=== PATIENT | female | born 1955 | race Caucasian/White ===

== ENCOUNTER 2017-05-12 20:58 | Emergency (ER) | payer SELFPAY ==
[~2017-05-12] VITALS: Ht 154.9 cm; Wt 62.1 kg
--- NOTE | 2017-05-12 21:03 | ED.ADGEN ---
Past History Past Medical History: No Pertinent History, COPD, Other Past Surgical History: Other Smoking: Cigarettes Alcohol Use: None Drug Use: None Adult General Chief Complaint Chief Complaint " I coughing up some white stuff . and then . It was green.. I feel like I got the flu or something.. I ve been sick since sunday.. Fever... coughing... I ve cut back on my smoking....." my nose runs constantly. " HPI HPI Patient is a 62 year old female who presents with above hx and complaints of fever, chills and coughing. Pt. denies any travel or specific ill contacts. Pt. does smoke and has hx of chronic bronchitis. Pt. denies any immunosuppression. Pt. has hx or episodes of bronchitis in past and Hx. of HTN. Pt. has hx of allergies usually seasonal or with changes in weather. Pt. complaints of nasal congestion and drainage. Mild pharyngeal soreness. Review of Systems Review of Systems Constitutional:Subjecteive hx of fever or chills [] Eyes: Denies change in visual acuity, redness, or eye pain [] HENT: Hx of nasal congestion and sore throat [] Respiratory: occasional cough and wheezing. Cardiovascular: No additional information not addressed in HPI [] GI: Denies abdominal pain, nausea, vomiting, bloody stools or diarrhea [] : Denies dysuria or hematuria [] Musculoskeletal: Denies back pain or joint pain [] Integument: Denies rash or skin lesions [] Neurologic: Denies headache, focal weakness or sensory changes [] Endocrine: Denies polyuria or polydipsia [] All other systems were reviewed and found to be within normal limits, except as documented in this note. Family History Family History Noncontributory Current Medications Current Medications See Nursing for home. Allergies Allergies Allergies Coded Allergies Type Severity Reaction Last Updated Verified No Known Drug Allergies 05/13/17 No Physical Exam Physical Exam Constitutional: mild distress, non-toxic appearance. [] HENT: Normocephalic, atraumatic, bilateral external ears normal, oropharynx moist,mild injection of pharynx., no oral exudates, nose rhinorrhea. Eyes: PERRLA, EOMI, conjunctiva normal, no discharge. [] Neck: Normal range of motion, no tenderness, supple, no stridor. [] Cardiovascular:Heart rate regular rhythm, no murmur [] Lungs & Thorax: Bilateral breath sounds equal at apex with scattered wheezes on auscultation [] Abdomen: Bowel sounds normal, soft, no tenderness, no masses, no pulsatile masses. [] Skin: Warm, dry, no erythema, no rash. [] Back: No tenderness, no CVA tenderness. [] Extremities: No tenderness, no cyanosis, no clubbing, ROM intact, no edema. [] No cording. Neurologic: Alert and oriented X 3, normal motor function, normal sensory function, no focal deficits noted. [] Psychologic: Affect normal, judgement normal, mood normal. [] Current Patient Data Lab Results Laboratory Tests Test 05/12/17 21:16 Influenza Type A (Rapid) Negative (NEGATIVE) Influenza Type B (Rapid) Negative (NEGATIVE) Group A Streptococcus Rapid Negative (NEGATIVE) EKG EKG [] Radiology/Procedures Radiology/Procedures [] Course & Med Decision Making Course & Med Decision Making Pertinent Labs and Imaging studies reviewed. (See chart for details). Pt. to take tylenol and ibuprofen of discomfort or fever. Push fluids. Vit. C drinks. Benadryl for congestion and nasal drainage. STOP smoking. . Follow up with primary. Return to night even if any concerns. [] Final Impression Final Impression 1. Viral Syndrome 2. Tobacco Abuse 3. Bronchitis[] Problems: Dragon Disclaimer Dragon Disclaimer This electronic medical record was generated, in whole or in part, using a voice recognition dictation system. PENNY STACY MD May 12, 2017 21:03
[2017-05-12 22:05] LABS: INFLUENZA A PATIENT NEGATIVE (NEGATIVE); INFLUENZA B PATIENT NEGATIVE (NEGATIVE)
[2017-05-12 22:50] VITALS: BP 132/70
[2017-05-13] MEDS ORDERED: FLUT1DIS3 IH (02:45)
[2017-05-14] MEDS ORDERED: IV NORMAL SALINE 1,000ML 1,000 ML IV ONE (20:45)
[2017-05-14 21:18] LABS: BASO % 0 % (0-3); EOS % 0 % (0-3); HEMATOCRIT 40.1 % (36.0-47.0); HEMOGLOBIN 13.9 g/dL (12.0-15.5); LYMPH # 2.9 x10^3/uL (1.0-4.8); LYMPH % 47 % (24-48); MEAN CORPUSCULAR HEMOGLOBIN 30 pg (25-35); MEAN CORPUSCULAR HGB CONC 35 g/dL (31-37); MEAN CORPUSCULAR VOLUME 85 fL (79-100); MONO # 0.5 x10^3/uL (0.0-1.1); MONO % 8 % (0-9); NEUT # 2.8 x10^3uL (1.8-7.7); NEUT % 45 % (31-73); PLATELET COUNT 196 x10^3/uL (140-400); RED BLOOD COUNT 4.71 x10^6/uL (3.50-5.40); RED CELL DISTRIBUTION WIDTH 13.2 % (11.5-14.5); WHITE BLOOD COUNT 6.2 x10^3/uL (4.0-11.0)
[2017-05-14 21:29] LABS: ALBUMIN 3.3 g/dL (3.4-5.0); ALBUMIN/GLOBULIN RATIO 0.9 (1.0-1.7); CALCIUM 9.3 mg/dL (8.5-10.1); CREATININE 1.1 mg/dL (0.6-1.0); GFR 50.5; POTASSIUM 3.9 mmol/L (3.5-5.1); TOTAL BILIRUBIN 0.3 mg/dL (0.2-1.0); TOTAL PROTEIN 7.1 g/dL (6.4-8.2)
[2017-05-14 21:32] LABS: BACTERIA,URINE 0 /HPF (0-FEW); BILIRUBIN,URINE NEG (NEG); CLARITY,URINE CLEAR; COLOR,URINE YELLOW; GLUCOSE,URINE NEG (NEG); NITRITE,URINE NEG (NEG); SQUAMOUS EPITHELIAL CELL,UR MANY /LPF; UROBILINOGEN,URINE 0.2 mg/dL (0.2 mg/dL)
[2017-05-14 21:33] LABS: HYALINE CASTS, URINE OCC /HPF
== END 2017-05-12 22:55 | disposition home or self-care (01) ==
LOC: ER 20:58
DX: B34.9 Viral infection, unspecified (principal); J40 Bronchitis, not specified as acute or chronic; F17.210 Nicotine dependence, cigarettes, uncomplicated; J44.9 Chronic obstructive pulmonary disease, unspecified
CPT/HCPCS: 36415; 80053; 81001; 85025; 87070; 87804; 87880; 99284

== ENCOUNTER 2017-05-14 20:07 | Emergency (ER) | payer SELFPAY ==
[~2017-05-14] VITALS: Ht 154.9 cm; Wt 62.9 kg
[~2017-05-14 20:07] MED LIST: FLUT1DIS3 IH
[2017-05-14] MEDS ORDERED: KETOROLAC 15 MG/ML VIAL. IV ONE (21:15)
[2017-05-14] MEDS ORDERED: IV NORMAL SALINE 1,000ML 1,000 ML IV ONE (21:15)
[2017-05-14] MEDS ORDERED: PROMETH/CODEINE 6.25/10MG 5 ML SYRUP. PO ONE (22:15)
[2017-05-14 22:25] VITALS: BP 147/84
[2017-05-14] MEDS ORDERED: PROM5SYR2 PO (22:42)
--- NOTE | 2017-05-14 22:42 | PHYS DOC ---
Past History Past Medical History: COPD, Hypertension, Other Past Surgical History: Other Smoking: Cigarettes Alcohol Use: None Drug Use: None Adult General Chief Complaint Chief Complaint: Influenza HPI HPI Patient is a 62-year-old female who presents here today complaining of generalized fatigue, generalized malaise, nonproductive cough, nausea, generalized weakness for approximately 1 week now. Patient reports that she came to the ER on Sunday was diagnosed with a viral illness and was told that she might have the flu. Patient was discharged home with therapeutic medications and instructed to return the ER she's not getting any better. Patient presents today she has been feeling worse. Daughter reports her mother is been having decreased by mouth intake, tactile fevers, nausea, no dysuria frequency or urgency, positive nonproductive cough. Sore throat. Ear pain. Review of systems: Constitutional: Denies fever or chills Eyes: Denies change in visual acuity, redness, or eye pain HENT: Denies nasal congestion or sore throat Respiratory: Denies cough or shortness of breath All other systems were reviewed and found to be within normal limits, except as documented in this note. Physical exam: Constitutional: Well developed, well nourished, no acute distress, non-toxic appearance. HENT: Normocephalic, atraumatic, bilateral external ears normal, nose normal. Eyes: PERRLA, EOMI, conjunctiva normal, no discharge. Neck: Normal range of motion, no tenderness, supple, no stridor. Cardiovascular: Heart rate regular rhythm, Lungs & Thorax: Bilateral breath sounds clear to auscultation Abdomen: No abdominal distention. Skin: Warm, dry, no erythema, no rash. Back: Normal spinal curvature Extremities: No tenderness, no cyanosis, no clubbing, ROM intact, no edema. Neurologic: Alert and oriented X 3, normal motor function, normal sensory function, no focal deficits noted. Psychologic: Affect normal, judgement normal, mood normal. Patient's ER physical exam was most remarkable: Lungs are clear without any wheezing rales or rhonchi. TMs are clear. Oropharynx clear. Abdomen was benign. Abdomen soft nontender no rebound or guarding NABS. No Cleary sign, no tenderness to McBurney's point. Patient not present with any signs or symptoms of be consistent with an acute surgical abdomen. Chest x-ray as interpreted by ER physician reveals: Normal heart no infiltrates or effusions. Labs reviewed: Influenza a and B were negative. Strep screen negative. Labs drawn today: CBC, CMP within normal limits. Assessment and plan: 1. 62-year-old female who presents here today secondary to generalized malaise and likely viral illness. Patient's ER workup is been unremarkable. Patient reports generalized weakness, decreased sleep secondary to cough, diffuse malaise and myalgias. Patient's symptoms are consistent with a acute viral illness. Patient's currently afebrile and nontoxic appearing. Patient will be discharged home with some specks therapy including Tylenol as needed for her malaise as well as Phenergan with codeine to assist her to get some sleep at night with her cough. Patient be instructed to follow-up with her primary care physician within 2-3 days for reevaluation and to return to the ER. Discharged developing any shortness of breath or any other new symptoms that may be concerning. Current Medications Current Medications Current Medications Medications (Trade) Dose Ordered Sig/Charlee Start Time Stop Time Status Last Admin Dose Admin Ketorolac Tromethamine (Toradol) 15 mg 1X ONCE 05/14/17 21:15 05/14/17 21:16 DC 05/14/17 21:09 15 MG Promethazine HCl/ Codeine (Phenergan With Codeine) 10 ml 1X ONCE 05/14/17 22:15 05/14/17 22:16 DC 05/14/17 22:08 10 ML Sodium Chloride 1,000 ml @ 1,000 mls/hr 1X ONCE 05/14/17 21:15 05/14/17 22:14 DC 05/14/17 21:09 1,000 MLS/HR Allergies Allergies Allergies Coded Allergies Type Severity Reaction Last Updated Verified No Known Drug Allergies 05/13/17 No Current Patient Data Vital Signs Vital Signs Date Time Temp Pulse Resp B/P (MAP) Pulse Ox O2 Delivery O2 Flow Rate FiO2 05/14/17 20:07 98.4 72 18 98 Room Air EKG EKG [] Radiology/Procedures Radiology/Procedures [] Course & Med Decision Making Course & Med Decision Making Pertinent Labs and Imaging studies reviewed. (See chart for details) [] Dragon Disclaimer Dragon Disclaimer This electronic medical record was generated, in whole or in part, using a voice recognition dictation system. Departure Departure: Impression: Primary Impression: Viral illness Disposition: HOME, SELF-CARE Condition: IMPROVED Referrals: PCP,NO (PCP) Patient Instructions: Viral Syndrome Scripts Promethazine HCl/Codeine (Prometh-Codein 6.25-10 mg/5 ml) 5 Ml Syrup 10 ML PO HS Y for COUGH, #120 ML Prov: SUSANA ONEIL MD 05/14/17 SUSANA ONEIL MD May 14, 2017 22:42
--- NOTE | 2017-05-15 07:30 | RAD ---
Chest, 2 views, 05/14/2017: History: Cough, congestion, fatigue Comparison is made to a study from 12/10/2011. The heart size and pulmonary vascularity are normal. No pulmonary infiltrate is seen. There is no evidence of pleural fluid. Mild spurring is present in the spine. A surgical plate and screws is evident in the lower cervical region. IMPRESSION: No acute cardiopulmonary abnormality is detected.
== END 2017-05-14 22:48 | disposition home or self-care (01) ==
LOC: ER 20:07
DX: B34.9 Viral infection, unspecified (principal); J44.9 Chronic obstructive pulmonary disease, unspecified; I10 Essential (primary) hypertension; F17.210 Nicotine dependence, cigarettes, uncomplicated
CPT/HCPCS: 71046; 96361; 96374; 99284; J1885; J7030

== ENCOUNTER 2021-02-01 02:46 | Emergency (ER) | payer MEDICARE ==
[~2021-02-01] VITALS: Ht 154.9 cm; Wt 62.9 kg
[~2021-02-01 02:46] MED LIST changes: +PROM5SYR2 PO
--- NOTE | 2021-02-01 03:01 | PHYS DOC ---
Past History Past Medical History: COPD, Hypertension, Other Additional Past Medical Histor: denies Past Surgical History: Other Additional Past Surgical Histo: neck Smoking: Cigarettes Alcohol Use: None Drug Use: None General Adult EDM: Chief Complaint: SHORTNESS OF BREATH HPI: HPI: ". This been .... coming on ....for a while.. just worse.... tonight...." Patient is a 66 year old female who presents with obvious respiratory failure. Pt. reports increased dyspnea last couple days. Much more severe tonight. Earline ent has had past history of COPD exacerbations. Reportedly has never had a IN or CHF in the past. Patient does have oxygen at home which she uses for her COPD. Patient has had previous elevated glucose levels and hypertension. Patient has excess of [id number] smoking history patient normally follows with Dr. Schroeder. Pt. has had saturation in 80% by Paramedics, but supplement 100% NRBM - sat into 95%. Pt. promptly placed on BiPAP 18/5 with rapid relief of dyspnea and hypoxia. Patient has completed 1 COVID vaccination. No recent travel. No specific ill contacts. No history immunosuppression. Review of Systems: Review of Systems: Constitutional: Denies fever or chills Eyes: Denies change in visual acuity HENT: Denies nasal congestion or sore throat Respiratory: Complains of shortness of breath Cardiovascular: Denies chest pain or edema GI: Denies abdominal pain, nausea, vomiting, bloody stools or diarrhea : Denies dysuria Musculoskeletal: Denies back pain or joint pain Integument: Denies rash Neurologic: Denies headache, focal weakness or sensory changes Endocrine: Denies polyuria or polydipsia Lymphatic: Denies swollen glands Psychiatric: Denies depression or anxiety Family History: Family History: Noncontributory to presentation Current Medications: Current Meds: See nursing for home meds Allergies: Allergies: Allergies Coded Allergies Type Severity Reaction Last Updated Verified No Known Drug Allergies 02/01/21 No Physical Exam: PE: Constitutional:in acute distress, non-toxic appearance. [] HENT: Normocephalic, atraumatic, bilateral external ears normal, oropharynx moist, no oral exudates, nose normal. [] Eyes: PERRLA, EOMI, conjunctiva normal, no discharge. [] Neck: Normal range of motion, no tenderness, supple, no stridor. JVD in sitting position Cardiovascular: Tachycardia heart rate regular rhythm, no murmur [] bedside monitor shows sinus tach with a ventricular strain pattern Lungs & Thorax: Bilateral breath sounds equal apex with crackles and wheezing throughout auscultation [] Abdomen: Bowel sounds decreased, soft, no tenderness, no masses, no pulsatile masses. [] Skin: Warm, diaphoretic, no erythema, no rash. [] Back: No tenderness, no CVA tenderness. [] Extremities: No tenderness, no cyanosis, no clubbing, ROM intact, ankle edema. No cording appreciated. Arthritic changes Neurologic: Alert and oriented X 3, moves all extremities on request, does have distal sensory, no focal deficits noted. [] Psychologic: Affect anxious, judgement normal, mood normal. [] Current Patient Data: Vital Signs: Vital Signs Date Time Temp Pulse Resp B/P (MAP) Pulse Ox O2 Delivery O2 Flow Rate FiO2 02/01/21 02:50 113 40 147/84 (105) 98 NonRebreather Mask 15.0 EKG: EKG: My interpretation EKG shows a sinus rhythm at 98 bpm. Ventricular strain pattern abnormal EKG time of EKG is 0317 hrs. [] Radiology/Procedures: Radiology/Procedures: [][place] [address] IMAGING REPORT Signed PATIENT: ISAAC BRADFORD LACCOUNT: [id number] : 1955 LOCATION: ER AGE: 66 SEX: F EXAM STATUS: REG ER ORD. PHYSICIAN: PENNY STACY MD REASON: resp. failure PROCEDURE: PORTABLE CHEST 1V INDICATION: Reason: resp. failure / Spl. Instructions: / History: COMPARISON: April 2017 FINDINGS: Single view of chest obtained. Enlarged cardiomediastinal silhouette. Postoperative changes status post fusion at the lower cervical spine partially seen. Interstitial and alveolar opacities bilaterally moderate in severity there is also some disorganized pulmonary markings which could be from chronic lung disease. IMPRESSION: * Interstitial and alveolar opacities bilaterally which could be from edema or bilateral infiltrate. * Enlarged cardiomediastinal silhouette. * Coarsened lung markings. Could be from chronic lung disease. Electronically signed by: Carlene Dominguez MD (02/01/2021 4:51 AM) [id number] DICTATED AND SIGNED BY: CARLENE DOMINGUEZ MD DATE: 02/01/219 CC: NICOLAS SCHROEDER MD; PENNY STACY MD ~MTH0 0 Heart Score: C/O Chest Pain: No HEART Score for Chest Pain: HEART Score for Chest Pain Response (Comments) Value History Highly Suspicious [address] Depression 2 Age > 65 2 Risk Factors 1 or 2 Risk Factors 1 Troponin >3 x Normal Limit 2 Total 9 Risk Factors: Risk Factors: DM, Current or recent (<one month) smoker, HTN, HLP, family history of CAD, obesity. Risk Scores: Score 0 - 3: 2.5% MACE over next 6 weeks - Discharge Home Score 4 - 6: 20.3% MACE over next 6 weeks - Admit for Clinical Observation Score 7 - 10: 72.7% MACE over next 6 weeks - Early Invasive Strategies Course & Med Decision Making: Course & Med Decision Making Pertinent Labs and Imaging studies reviewed. (See chart for details) Discussed presentation, testing and tx. plan with and Dr. Gilbert. Plan hold in ED until AM shift for transfer to [facility]. Will start Azithromax, Solu-Medrol, Lovenox, aspirin, Nitropaste, Lasix, DuoNeb. We will continue BiPAP until she has some diuresis.. Critical Care= 90 min. Bipap titration, discussions with family and consultants. EKG sent to Dr. Acevedo [phone]. Endorsed to Dr. Ramirez at shift change pending transfer to [facility]. Impression: 1. Respiratory failure-hypoxia 2. CHF-BNP 2365 3. Non-Stemi IN - Trop 3247 4. Diabetes-glucose 260 5. History of COPD 6. Elevated Lactic Acid 3.5 7. Elevated D-dimer 0.96 [] Dragon Disclaimer: Dragon Disclaimer: This electronic medical record was generated, in whole or in part, using a voice recognition dictation system. Departure Departure: Referrals: PCP,NO (PCP) Tk Disclaimer This chart was dictated in whole or in part using Voice Recognition software in a busy, high-work load, and often noisy Emergency Department environment. It may contain unintended and wholly unrecognized errors or omissions. Dragon Disclaimer This chart was dictated in whole or in part using Voice Recognition software in a busy, high-work load, and often noisy Emergency Department environment. It may contain unintended and wholly unrecognized errors or omissions. PENNY STACY MD Feb 01, 2021 03:01
[2021-02-01 03:27] LABS: BASO # 0.1 x10^3/uL (0.0-0.2); BASO % 1 % (0-3); EOS # 0.3 x10^3/uL (0.0-0.7); EOS % 2 % (0-3); HEMOGLOBIN 12.5 g/dL (12.0-15.5); LYMPH # 6.8 x10^3/uL (1.0-4.8); LYMPH % 48 % (24-48); MEAN CORPUSCULAR HEMOGLOBIN 29 pg (25-35); MEAN CORPUSCULAR HGB CONC 33 g/dL (31-37); MEAN CORPUSCULAR VOLUME 87 fL (79-100); MONO % 7 % (0-9); NEUT # 6.1 x10^3uL (1.8-7.7); NEUT % 43 % (31-73); PLATELET COUNT 307 x10^3/uL (140-400); RED BLOOD COUNT 4.35 x10^6/uL (3.50-5.40); RED CELL DISTRIBUTION WIDTH 13.9 % (11.5-14.5); WHITE BLOOD COUNT 14.3 x10^3/uL (4.0-11.0)
[2021-02-01] MEDS ORDERED: IPRATRPIUM/ALBUTEROL 0.5/2.5MG 3 ML NEBU. NEB ONE (03:30)
[2021-02-01] MEDS ORDERED: ASPIRIN CHEWABLE 81 MG TABLET. PO ONE (03:30)
[2021-02-01 03:52] LABS: CALCIUM 7.9 mg/dL (8.5-10.1); GFR 55.6; POTASSIUM 4.5 mmol/L (3.5-5.1)
[2021-02-01 03:57] LABS: ALBUMIN 3.4 g/dL (3.4-5.0); DIRECT BILIRUBIN 0.1 mg/dL (0.0-0.2); MAGNESIUM 2.2 mg/dL (1.8-2.4); TOTAL BILIRUBIN 0.3 mg/dL (0.2-1.0); TOTAL PROTEIN 6.9 g/dL (6.4-8.2)
[2021-02-01] MEDS ORDERED: AZITHROMYCIN 250 MG TABLET. PO ONE (04:00)
[2021-02-01] MEDS ORDERED: methylPREDNISolone SOD SUCC PF 125 MG/2 ML VIAL. IV ONE (04:00)
[2021-02-01 04:18] LABS: BGAS PH 7.31 (7.35-7.45)
[2021-02-01] MEDS ORDERED: NITROGLYCERIN OINT 1 GM PACKET. TP ONE (04:30)
[2021-02-01] MEDS ORDERED: FUROSEMIDE 40 MG/4 ML VIAL IVP ONE (04:30)
[2021-02-01] MEDS ORDERED: ENOXAPARIN ** NOTE DOSE ** SYRINGE SQ ONE (04:30)
[2021-02-01 04:52] LABS: BARBITURATES NEG (NEG); BENZODIAZEPINES NEG (NEG); CANNABINOIDS NEG (NEG); COCAINE NEG (NEG); METHADONE NEG (NEG); OPIATES POS (NEG); PHENCYCLIDINE NEG (NEG)
--- NOTE | 2021-02-01 04:53 | RAD ---
INDICATION: Reason: resp. failure / Spl. Instructions: / History: COMPARISON: April 2017 FINDINGS: Single view of chest obtained. Enlarged cardiomediastinal silhouette. Postoperative changes status post fusion at the lower cervical spine partially seen. Interstitial and alveolar opacities bilaterally moderate in severity there is also some disorganized pulmonary markings which could be from chronic lung disease. IMPRESSION: * Interstitial and alveolar opacities bilaterally which could be from edema or bilateral infiltrate. * Enlarged cardiomediastinal silhouette. * Coarsened lung markings. Could be from chronic lung disease. Electronically signed by: Adan Murguia MD (02/01/2021 4:51 AM) [id number]
[2021-02-01 04:58] LABS: AMPHETAMINE/METHAMPHETAMINE NEG (NEG)
[2021-02-01 05:07] LABS: INFLUENZA A PATIENT NEGATIVE (NEGATIVE); INFLUENZA B PATIENT NEGATIVE (NEGATIVE)
[2021-02-01 05:21] LABS: BACTERIA,URINE 0 /HPF (0-FEW); BILIRUBIN,URINE NEG (NEG); CLARITY,URINE CLEAR; COLOR,URINE YELLOW; GLUCOSE,URINE NEG (NEG); NITRITE,URINE NEG (NEG); RBC,URINE OCC /HPF (0-2); SQUAMOUS EPITHELIAL CELL,UR OCC /LPF; UROBILINOGEN,URINE 0.2 mg/dL (0.2 mg/dL); WBC,URINE OCC /HPF (0-4)
--- NOTE | 2021-02-01 08:06 | EKG ---
[address] [address] Test Date: 2021-02-01 Test Time: 03:17:04 Pat Name: ISAAC BRADFORD Department: Room: Gender: F Racing Secretary: NATALIE : 1955 Requested By: PENNY STACY Order Number: [id number] Reading MD: Mario Navarro Measurements Intervals [place] Rate: 98 P: 56 CO: 150 QRS: 44 QRSD: 114 T: 248 QT: 374 QTc: 479 Interpretive Statements SINUS RHYTHM LEFT ATRIAL ABNORMALITY Electronically Signed On 02-03-2021 12:53:28 GRAIN OILSEED OR PASTURE GROWER by Mario Navarro
--- NOTE | 2021-02-01 08:15 | PDOC2 ---
EMILIA LUCIO EVELYN 02/01/21 0814: CARDIAC CONSULT DATE OF CONSULT DOS: DATE: 02/01/21 TIME: 08:12 REASON FOR CONSULT Reason for Consult Elevated troponin SOURCE Source: Chart review, Patient HPI History of Present Illness This is a 66 yo female who presented secondary to shortness of breath and chest pressure. Troponin notes to be elevated, which promoted this consult. Patient reports she has been short of breath for the last several days. Developed intermittent sharp pain in her central/left chest. Also reporting left chest tightness. Symptoms not specifically associated with dizziness, diaphoresis, or nausea/vomiting, but does reports she has been waking up frequently with night sweats. No known medical history, although has not been to a provider in about 15 years. No meds at home. No recent illness, fevers. Reports chest pressure improved with nitro SL. Breathing has also improved s/p IV diuresis. PAST MEDICAL HISTORY Cardiovascular: No pertinent hx Heme/Onc: No pertinent hx Renal/: No pertinent hx Endocrine: No pertinent hx PAST SURGICAL HISTORY Past Surgical History: Other (cervical fusion ) FAMILY HISTORY Family History: Heart Disease SOCIAL HISTORY Smoke: 2 packs per day ALCOHOL: none Drugs: None Lives: with Family CURRENT MEDICATIONS Current Medications Current Medications Aspirin (Aspirin Chewable) 324 mg 1X ONCE PO Last administered on 02/01/21at 04:07; Start 02/01/21 at 03:30; Stop 02/01/21 at 03:31; Status DC Albuterol/ Ipratropium (Duoneb) 3 ml 1X ONCE NEB Last administered on 02/01/21at 03:31; Start 02/01/21 at 03:30; Stop 02/01/21 at 03:31; Status DC Methylprednisolone Sodium Succinate (SOLU-Medrol 125MG VIAL) 125 mg 1X ONCE IV Last administered on 02/01/21at 03:47; Start 02/01/21 at 04:00; Stop 02/01/21 at 04:01; Status DC Azithromycin (Zithromax) 500 mg 1X ONCE PO Last administered on 02/01/21at 04:07; Start 02/01/21 at 04:00; Stop 02/01/21 at 04:01; Status DC Enoxaparin Sodium (Lovenox 60mg Syringe) 60 mg 1X ONCE SQ Last administered on 02/01/21at 04:22; Start 02/01/21 at 04:30; Stop 02/01/21 at 04:31; Status DC Nitroglycerin (Nitro-Bid Oint) 1 inch 1X ONCE TP Last administered on 02/01/21at 04:23; Start 02/01/21 at 04:30; Stop 02/01/21 at 04:31; Status DC Furosemide (Lasix) 40 mg 1X ONCE IVP Last administered on 02/01/21at 04:22; Start 02/01/21 at 04:30; Stop 02/01/21 at 04:31; Status DC Active Scripts Active Prometh-Codein 6.25-10 mg/5 ml (Promethazine HCl/Codeine) 5 Ml Syrup 10 Ml PO HS PRN Reported Advair 250-50 Diskus (Fluticasone/Salmeterol) 1 Each Disk.w.dev 2 Each IH BID No Known Medications Prior To Admisstion (Info) Each 1 Each [facility] ALLERGIES Allergies: Coded Allergies: No Known Drug Allergies (Unverified , 02/01/21) ROS Review of Systems 14 point ROS conducted with pertinent positives noted above in HPI PHYSICAL EXAM General: Alert, Oriented X3, Cooperative, No acute distress HEENT: Atraumatic Lungs: Other (diminished bases) Heart: Regular rate Abdomen: Soft, No tenderness Extremities: No edema, Normal pulses Skin: No breakdown Neuro: Normal speech, Sensation intact Psych/Mental Status: Mental status NL, Mood NL MUSCULOSKELETAL: Osteoarthritic changes both hands VITALS Vital Signs Vital Signs Date Time Temp Pulse Resp B/P (MAP) Pulse Ox O2 Delivery O2 Flow Rate FiO2 02/01/21 06:46 77 25 121/65 (83) 98 BiPAP/CPAP 02/01/21 04:32 100.0 02/01/21 02:50 15.0 LABS LABS Laboratory Tests Test 02/01/21 02:55 02/01/21 03:38 02/01/21 04:10 02/01/21 04:20 White Blood Count 14.3 x10^3/uL (4.0-11.0) Red Blood Count 4.35 x10^6/uL (3.50-5.40) Hemoglobin 12.5 g/dL (12.0-15.5) Hematocrit 38.0 % (36.0-47.0) Mean Corpuscular Volume 87 fL (79-100) Mean Corpuscular Hemoglobin 29 pg (25-35) Mean Corpuscular Hemoglobin Concent 33 g/dL (31-37) Red Cell Distribution Width 13.9 % (11.5-14.5) Platelet Count 307 x10^3/uL (140-400) Neutrophils (%) (Auto) 43 % (31-73) Lymphocytes (%) (Auto) 48 % (24-48) Monocytes (%) (Auto) 7 % (0-9) Eosinophils (%) (Auto) 2 % (0-3) Basophils (%) (Auto) 1 % (0-3) Neutrophils # (Auto) 6.1 x10^3uL (1.8-7.7) Lymphocytes # (Auto) 6.8 x10^3/uL (1.0-4.8) Monocytes # (Auto) 1.0 x10^3/uL (0.0-1.1) Eosinophils # (Auto) 0.3 x10^3/uL (0.0-0.7) Basophils # (Auto) 0.1 x10^3/uL (0.0-0.2) Prothrombin Time 9.7 SEC (9.4-11.4) Prothromb Time International Ratio 0.9 (0.9-1.1) Activated Partial Thromboplast Time 24 SEC (23-33) D-Dimer (Inés) 0.96 mg/L (0.00-0.50) Sodium Level 138 mmol/L (136-145) Potassium Level 4.5 mmol/L (3.5-5.1) Chloride Level 103 mmol/L (98-107) Carbon Dioxide Level 22 mmol/L (21-32) Anion Gap 13 (6-14) Blood Urea Nitrogen 17 mg/dL (7-20) Creatinine 1.0 mg/dL (0.6-1.0) Estimated GFR (Cockcroft-Gault) 55.6 Glucose Level 260 mg/dL (70-99) Lactic Acid Level 3.5 mmol/L (0.4-2.0) Calcium Level 7.9 mg/dL (8.5-10.1) Magnesium Level 2.2 mg/dL (1.8-2.4) Total Bilirubin 0.3 mg/dL (0.2-1.0) Direct Bilirubin 0.1 mg/dL (0.0-0.2) Aspartate Amino Transf (AST/SGOT) 60 U/L (15-37) Alanine Aminotransferase (ALT/SGPT) 41 U/L (14-59) Alkaline Phosphatase 128 U/L (46-116) Creatine Kinase 312 U/L (26-192) Troponin I High Sensitivity 3267 ng/L (4-50) PI-Opz-S-Type Natriuretic Peptide 2365 pg/mL (0-124) Total Protein 6.9 g/dL (6.4-8.2) Albumin 3.4 g/dL (3.4-5.0) Lipase 57 U/L (73-393) Blood Gas pH 7.31 (7.35-7.45) Blood Gas PCO2 43 mmHg (35-45) Blood Gas PO2 88 mmHg (80-100) Blood Gas HCO3 22 mmol/L (22-26) Arterial Bld O2 Saturation (Calc) 96 % (92-99) FiO2 50 % Influenza Type A (Rapid) Negative (NEGATIVE) Influenza Type B (Rapid) Negative (NEGATIVE) SARS-CoV-2 Antigen (Rapid) Negative (NEGATIVE) Urine Collection Type Unknown Urine Color Yellow Urine Clarity Clear Urine pH 7.5 Urine Specific [place] 1.010 Urine Protein Neg (NEG-TRACE) Urine Glucose (UA) Neg mg/dL (NEG) Urine Ketones (Stick) Neg mg/dL (NEG) Urine Blood Trace (NEG) Urine Nitrite Neg (NEG) Urine Bilirubin Neg (NEG) Urine Urobilinogen Dipstick 0.2 mg/dL (0.2 mg/dL) Urine Leukocyte Esterase Neg (NEG) Urine RBC Occ /HPF (0-2) Urine WBC Occ /HPF (0-4) Urine Squamous Epithelial Cells Occ /LPF Urine Bacteria 0 /HPF (0-FEW) Urine Opiates Screen Pos (NEG) Urine Methadone Screen Neg (NEG) Urine Barbiturates Neg (NEG) Urine Phencyclidine Screen Neg (NEG) Urine Amphetamine/Methamphetamine Neg (NEG) Urine Benzodiazepines Screen Neg (NEG) Urine Cocaine Screen Neg (NEG) Urine Cannabinoids Screen Neg (NEG) Urine Ethyl Alcohol Neg (NEG) Test 02/01/21 05:55 Lactic Acid Level 0.9 mmol/L (0.4-2.0) Troponin I High Sensitivity 4003 ng/L (4-50) ASSESSMENT/PLAN Assessment/Plan 1. Acute respiratory failure secondary to acute on chronic probable diastolic CHF; improved s/p IV diuresis 2. Chest pain with typical features. 3. NSTEMI; high sensitivity trop 4003. EKG with LBBB. S/p Lovenox, ASA therapy 4. Hyperglycemia 5. 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 Lactic acidosis; most probable secondary to increase work of breathing. Now WNL. Also fever x1 overnight. Now normalized Recommendations Lipids ASA Trend trop Echo to assess LV systolic function Diuresis with monitoring of renal function Given symptomatology in setting of NSTEMI, recommend further ischemic evaluation with cardiac catheterization. R/b/a were discussed with patient and son and they are agreeable. Will plan for transfer to [facility] for LHC Keep NPO. KADEEM BUTTERFIELD MD 02/01/21 1023: EMILIA LUCIO APRN Feb 01, 2021 08:14 KADEEM BUTTERFIELD MD Feb 01, 2021 10:23
[2021-02-01] MEDS ORDERED: FUROSEMIDE 40 MG/4 ML VIAL ONE (09:27)
[2021-02-01] MEDS ORDERED: ASPIRIN ENTERIC COATED 81 MG TABLET.DR. PO ONE (09:27)
[2021-02-01 10:39] VITALS: BP 144/84
[2021-02-02] MEDS ORDERED: ASPIRIN ENTERIC COATED 81 MG TABLET.DR. PO SCH (08:00)
[2021-02-02] MEDS ORDERED: FUROSEMIDE 40 MG/4 ML VIAL IVP SCH (09:00)
--- NOTE | 2021-02-02 11:17 | NUR ---
CALLED TO GIVE COVID RESULTS. SOMEONE ELSE ANSWERED, I ASKED FOR THEM TO LET THE PATIENT KNOW TO GIVE US A CALL BACK
== END 2021-02-01 10:49 | disposition short-term general hospital (02) ==
LOC: ER 02:46
DX: J96.91 Respiratory failure, unspecified with hypoxia (principal); I21.4 Non-ST elevation (NSTEMI) myocardial infarction; E11.9 Type 2 diabetes mellitus without complications; R79.1 Abnormal coagulation profile; R74.02 Elevation of levels of lactic acid dehydrogenase [LDH]; J44.9 Chronic obstructive pulmonary disease, unspecified; I10 Essential (primary) hypertension; F17.210 Nicotine dependence, cigarettes, uncomplicated; Z20.822 Contact with and (suspected) exposure to COVID-19
CPT/HCPCS: 36415; 36600; 71045; 80048; 80061; 80076; 80307; 81001; 82550; 82803; 83605; 83690; 83735; 83880; 84443; 84484; 85025; 85379; 85610; 85730; 87040; 87426; 87804; 93005; 94640; 94660; 96372; 96374; 96375; 99291; 99292; C9803; J1650; J1940; J2930; U0003

== ENCOUNTER 2021-02-11 05:15 | Emergency (ER) | payer MEDICARE ==
[~2021-02-11] VITALS: Ht 152.4 cm; Wt 61.9 kg
--- NOTE | 2021-02-11 06:11 | PHYS DOC ---
Past History Past Medical History: COPD, Hypertension, Other Additional Past Medical Histor: denies Past Surgical History: Other Additional Past Surgical Histo: cervical fusion C5-C7, stent Smoking: Cigarettes Additional Smoking Information: quit smoking 1 week ago Alcohol Use: None Drug Use: None General Adult EDM: Chief Complaint: MULTIPLE COMPLAINTS HPI: HPI: 66-year-old female presents with cough. She has had this increasing cough for 2 to 3 days. This morning she is feeling worse than yesterday and having some mild shortness of breath. She decided she should come in for evaluation. Patient was recently in the hospital have a stent placed 12 days ago. She denies chest pain or diaphoresis. The patient also stopped smoking about 1 week ago. She has been taking all her medications as prescribed. She has not checked to see if she has a fever at home. Review of Systems: Review of Systems: Constitutional: Denies fever or chills Eyes: Denies change in visual acuity HENT: Denies nasal congestion or sore throat Respiratory: Cough with mild shortness of breath Cardiovascular: Denies chest pain or edema GI: Denies abdominal pain, nausea, vomiting, bloody stools or diarrhea : Denies dysuria Musculoskeletal: Denies back pain or joint pain Integument: Denies rash Neurologic: Headache. Denies focal weakness or sensory changes Endocrine: Denies polyuria or polydipsia Lymphatic: Denies swollen glands Psychiatric: Denies depression or anxiety Allergies: Allergies: Allergies Coded Allergies Type Severity Reaction Last Updated Verified No Known Drug Allergies 02/01/21 No Physical Exam: PE: Constitutional: Well developed, well nourished, no acute distress, non-toxic appearance. [] HENT: Normocephalic, atraumatic, bilateral external ears normal, oropharynx moist, no oral exudates, nose normal. [] Eyes: PERRLA, EOMI, conjunctiva normal, no discharge. [] Neck: Normal range of motion, no tenderness, supple, no stridor. [] Cardiovascular: Heart rate 72, regular rhythm, no murmur [] Lungs & Thorax: Bilateral breath sounds diminished.[] Abdomen: Bowel sounds normal, soft, no tenderness, no masses, no pulsatile masses. [] Skin: Warm, dry, no erythema, no rash. [] Back: No tenderness, no CVA tenderness. [] Extremities: No tenderness, no cyanosis, no clubbing, ROM intact, no edema. [] Neurologic: Alert and oriented X 3, normal motor function, normal sensory function, no focal deficits noted. [] Psychologic: Affect normal, judgement normal, mood normal. [] Current Patient Data: Vital Signs: Vital Signs Date Time Temp Pulse Resp B/P (MAP) Pulse Ox O2 Delivery O2 Flow Rate FiO2 02/11/21 05:23 98.5 82 18 150/77 (101) 96 Room Air EKG: EKG: Sinus rhythm, rate 76, normal axis, no ST elevation or depression. [] Radiology/Procedures: Radiology/Procedures: [] Impressions: XR CHEST 2V INDICATION: cough . COMPARISON STUDY: 02/01/2021. FINDINGS: Lungs: Normal lung volume. Bilateral perihilar and basilar opacities have resolved. Pleura: No pleural effusion or pneumothorax. Heart and Mediastinum: The cardiomediastinal silhouette is normal. The great vessels of the thorax are normal. Bones and Soft Tissues: Degenerative changes of the spine. IMPRESSION: Bilateral perihilar and basilar opacities have resolved. No new consolidation. Electronically signed by: Barney Castro MD (02/11/2021 6:07 AM) [facility] DICTATED AND SIGNED BY: BARNEY CASTRO MD DATE: 02/11/21601 CC: CHRISTELLE ADAME DO; NICOLAS SCHROEDER MD; TATYANA LEDESMA DO ~MTH0 0 Heart Score: C/O Chest Pain: N/A Risk Factors: Risk Factors: DM, Current or recent (<one month) smoker, HTN, HLP, family history of CAD, obesity. Risk Scores: Score 0 - 3: 2.5% MACE over next 6 weeks - Discharge Home Score 4 - 6: 20.3% MACE over next 6 weeks - Admit for Clinical Observation Score 7 - 10: 72.7% MACE over next 6 weeks - Early Invasive Strategies Course & Med Decision Making: Course & Med Decision Making Pertinent Labs and Imaging studies reviewed. (See chart for details) The patient has a left lower lobe pneumonia. I will treat her with Rocephin and azithromycin. The patient is vaccinated against COVID-19 and had her Covid booster 3 days ago. The official chest x-ray read shows improving opacities and no new consolidation. The patient did not mention to me being treated for pneumonia while in the hospital, just getting a stent. Given the appearance of the left lower lobe x-ray I still think it is prudent to treat her for pneumonia. The patient is EKG is negative for acute findings. Her labs are unremarkable. I have given her guaifenesin codeine cough syrup for the ED. I will discharge her with azithromycin and cough syrup. She is stable for discharge at this time. [] Dragon Disclaimer: Dragon Disclaimer: This electronic medical record was generated, in whole or in part, using a voice recognition dictation system. Departure Departure: Impression: Primary Impression: Left lower lobe pneumonia Qualified Codes: J18.9 - Pneumonia, unspecified organism Disposition: HOME / SELF CARE / HOMELESS Condition: STABLE Referrals: NICOLAS SCHROEDER MD (PCP) Patient Instructions: Pneumonia, Adult, Lfek-ho-Rugm Scripts Guaifenesin/Codeine Phosphate (GUAIFENESIN-CODEINE SYRUP) 118 Ml Liquid 5 ML PO Q6HRS PRN for COUGH, #120 ML Prov: CHRISTELLE ADAME DO 02/11/21 Azithromycin (AZITHROMYCIN TABLET) 250 Mg Tablet 250 MG PO DAILY for ANTI-BIOTIC for 4 Days, #4 TAB 0 Refills start 02/11/21 Prov: CHRISTELLE ADAME DO 02/11/21 CHRISTELLE ADAME DO Feb 11, 2021 06:11
[2021-02-11] MEDS ORDERED: cefTRIAXone SODIUM 1 GM VIAL ONE (06:17)
[2021-02-11] MEDS ORDERED: IV NORMAL SALINE 50ML 50 ML ONE (06:17)
[2021-02-11 06:40] LABS: BASO # 0.1 x10^3/uL (0.0-0.2); BASO % 1 % (0-3); EOS # 0.1 x10^3/uL (0.0-0.7); EOS % 1 % (0-3); HEMATOCRIT 37.8 % (36.0-47.0); HEMOGLOBIN 12.8 g/dL (12.0-15.5); LYMPH # 1.9 x10^3/uL (1.0-4.8); LYMPH % 21 % (24-48); MEAN CORPUSCULAR HEMOGLOBIN 28 pg (25-35); MEAN CORPUSCULAR HGB CONC 34 g/dL (31-37); MEAN CORPUSCULAR VOLUME 84 fL (79-100); MONO # 0.6 x10^3/uL (0.0-1.1); MONO % 7 % (0-9); NEUT # 6.2 x10^3uL (1.8-7.7); NEUT % 70 % (31-73); PLATELET COUNT 253 x10^3/uL (140-400); RED BLOOD COUNT 4.51 x10^6/uL (3.50-5.40); RED CELL DISTRIBUTION WIDTH 13.5 % (11.5-14.5); WHITE BLOOD COUNT 8.9 x10^3/uL (4.0-11.0)
[2021-02-11 06:44] LABS: CALCIUM 8.4 mg/dL (8.5-10.1); GFR 55.6; POTASSIUM 3.9 mmol/L (3.5-5.1)
[2021-02-11 06:50] LABS: ALBUMIN 3.6 g/dL (3.4-5.0); ALBUMIN/GLOBULIN RATIO 1.1 (1.0-1.7); TOTAL BILIRUBIN 0.5 mg/dL (0.2-1.0)
[2021-02-11] MEDS ORDERED: guaiFENesin/CODEINE 100mg/10mg 5 ML LIQUID PO ONE (07:00)
[2021-02-11] MEDS ORDERED: KETOROLAC 15 MG/ML VIAL. IVP ONE (07:00)
[2021-02-11] MEDS ORDERED: AZITHROMYCIN 250 MG TABLET. PO ONE (07:00)
[2021-02-11] MEDS ORDERED: IV NORMAL SALINE 1,000ML 1,000 ML IV ONE (07:00)
--- NOTE | 2021-02-11 07:00 | EKG ---
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
[2021-02-11] MEDS ORDERED: AZIT250T6 PO (07:01)
[2021-02-11] MEDS ORDERED: GUAI118L13 PO (07:01)
[2021-02-11 07:10] VITALS: BP 136/60
== END 2021-02-11 07:10 | disposition home or self-care (01) ==
LOC: ER 05:15
DX: J18.1 Lobar pneumonia, unspecified organism (principal); R51.9 Headache, unspecified; J44.9 Chronic obstructive pulmonary disease, unspecified; I10 Essential (primary) hypertension; Z87.891 Personal history of nicotine dependence
CPT/HCPCS: 36415; 71046; 80053; 84484; 85025; 93005; 96365; 96375; 99284; J0696; J1885; J7030

== ENCOUNTER → 2021-04-13 | Outpatient (CLI) | payer MEDICARE ==
[~2021-04-13] MED LIST changes: +AZIT250T6 PO; +GUAI118L13 PO
[2021-04-13 11:35] LABS: BASO % 1 % (0-3); EOS # 0.2 x10^3/uL (0.0-0.7); EOS % 2 % (0-3); HEMATOCRIT 39.1 % (36.0-47.0); HEMOGLOBIN 13.2 g/dL (12.0-15.5); LYMPH # 3.3 x10^3/uL (1.0-4.8); LYMPH % 43 % (24-48); MEAN CORPUSCULAR HEMOGLOBIN 29 pg (25-35); MEAN CORPUSCULAR HGB CONC 34 g/dL (31-37); MEAN CORPUSCULAR VOLUME 84 fL (79-100); MONO # 0.4 x10^3/uL (0.0-1.1); MONO % 5 % (0-9); NEUT # 3.8 x10^3uL (1.8-7.7); NEUT % 49 % (31-73); PLATELET COUNT 245 x10^3/uL (140-400); RED BLOOD COUNT 4.65 x10^6/uL (3.50-5.40); WHITE BLOOD COUNT 7.7 x10^3/uL (4.0-11.0)
[2021-04-13 11:39] LABS: ALBUMIN 3.9 g/dL (3.4-5.0); ALBUMIN/GLOBULIN RATIO 1.1 (1.0-1.7); CREATININE 1.2 mg/dL (0.6-1.0); GFR 45.1; POTASSIUM 3.6 mmol/L (3.5-5.1); TOTAL BILIRUBIN 0.5 mg/dL (0.2-1.0); TOTAL PROTEIN 7.5 g/dL (6.4-8.2)
[2021-04-13 15:48] LABS: CHOLESTEROL/HDL RATIO 3.7; FREE T4 0.79 ng/dL (0.76-1.46); THYROID STIM HORMONE (TSH) 0.599 uIU/mL (0.358-3.740)
== END ==
LOC: LAB 10:32
PROVIDERS: ATTEND Family Medicine
DX: I25.10 Atherosclerotic heart disease of native coronary artery without angina pectoris (principal); I67.841 Reversible cerebrovascular vasoconstriction syndrome; E78.01 Familial hypercholesterolemia; E03.9 Hypothyroidism, unspecified
CPT/HCPCS: 36415; 80053; 80061; 84439; 84443; 84484; 85025; 85610; 85730

== ENCOUNTER → 2021-06-28 | Outpatient (CLI) | payer MEDICARE ==
[2021-06-28 12:53] LABS: BASO % 1 % (0-3); EOS # 0.3 x10^3/uL (0.0-0.7); EOS % 3 % (0-3); HEMATOCRIT 44.3 % (36.0-47.0); HEMOGLOBIN 14.8 g/dL (12.0-15.5); LYMPH # 3.3 x10^3/uL (1.0-4.8); LYMPH % 38 % (24-48); MEAN CORPUSCULAR HEMOGLOBIN 30 pg (25-35); MEAN CORPUSCULAR HGB CONC 33 g/dL (31-37); MEAN CORPUSCULAR VOLUME 88 fL (79-100); MONO # 0.5 x10^3/uL (0.0-1.1); MONO % 6 % (0-9); NEUT # 4.6 x10^3uL (1.8-7.7); NEUT % 53 % (31-73); PLATELET COUNT 261 x10^3/uL (140-400); RED BLOOD COUNT 5.02 x10^6/uL (3.50-5.40); RED CELL DISTRIBUTION WIDTH 13.4 % (11.5-14.5); WHITE BLOOD COUNT 8.7 x10^3/uL (4.0-11.0)
[2021-06-28 13:06] LABS: ALBUMIN 4.1 g/dL (3.4-5.0); ALBUMIN/GLOBULIN RATIO 1.1 (1.0-1.7); CALCIUM 9.3 mg/dL (8.5-10.1); CREATININE 1.2 mg/dL (0.6-1.0); GFR 45.1; TOTAL BILIRUBIN 0.5 mg/dL (0.2-1.0); TOTAL PROTEIN 7.8 g/dL (6.4-8.2)
[2021-06-29 17:53] LABS: CHOLESTEROL/HDL RATIO 4.3
== END ==
LOC: LAB 11:52
PROVIDERS: ATTEND Internal Medicine Cardiovascular Disease
DX: I25.10 Atherosclerotic heart disease of native coronary artery without angina pectoris (principal)
CPT/HCPCS: 36415; 80053; 80061; 85025

== ENCOUNTER → 2021-06-28 | Outpatient (CLI) | payer MEDICARE ==
--- NOTE | 2021-06-28 17:41 | CARD ---
MR#: [id number] Date of Study: 06/28/2021 Ordering Physician: KADEEM BUTTERFIELD, Referring Physician: KADEEM BUTTERFIELD, Tech: Arjun Clemons [facility] APPROVED REPORT EXAM: Two-dimensional and M-mode echocardiogram with Doppler and color Doppler. Other Information Quality : AverageHR: 58bpm Rhythm : NSR INDICATION Cardiac Disease: CAD RISK FACTORS Hypertension Hyperlipidemia Smoking 2D DIMENSIONS Left Atrium(2D)3.6 (1.6-4.0cm)IVSd1.2 (0.7-1.1cm) Aortic Root(2D)3.1 (2.0-3.7cm)LVDd5.3 (3.9-5.9cm) LVOT Diameter1.9 (1.8-2.4cm)PWd1.0 (0.7-1.1cm) LA Dlbiwo69 (18-58mL)LVDs4.5 (2.5-4.0cm) FS (%) 14.5 %SV40.9 ml LVEF(%)30.6 (>50%) Aortic Valve AoV Peak Brice.105.7cm/sAoV VTI21.6cm AO Peak GR.4.5mmHgLVOT Peak Brice.99.6cm/s LVOT VTI 18.99cmAO Mean GR.2mmHg CLINT (VMAX)2.25ee4NNH (VTI)2.59cm2 Mitral Valve MV E Jjhbhqkh04.3cm/sMV DECEL [id number] MV A Tvudvite02.5cm/sE/A Ratio0.5 Pulmonary Valve PV Peak Pgwmdpjz18.7cm/sPV Peak Grad.3mmHg Tricuspid Valve TR P. Amtfvszf867ue/sTR Peak Gr.27mmHg Pulmonary Vein S1 Hdrwpimj64.3cm/sD2 Szxzebsf12.7cm/s LEFT VENTRICLE The left ventricle is normal size. There is mild concentric left ventricular hypertrophy. The systoli c function is mildly impaired. The Ejection Fraction is 45-50%. There is inferior wall h;ypokinesis. Transmitral Doppler flow pattern is Grade I-abnormal relaxation pattern. No left ventricle thrombus n oted on this study. There is no ventricular septal defect visualized. There is no left ventricular an eurysm. There is no mass noted in the left ventricle. RIGHT VENTRICLE The right ventricle is normal size. There is normal right ventricular wall thickness. The right ventr icular systolic function is normal. ATRIA The left atrium size is normal. The right atrium size is normal. The interatrial septum is intact wit h no evidence for an atrial septal defect or patent foramen ovale as noted on 2-D or Doppler imaging. AORTIC VALVE The aortic valve is normal in structure and function. Doppler and Color Flow revealed no significant aortic regurgitation. There is no significant aortic valvular stenosis. There is no aortic valvular v egetation. MITRAL VALVE The mitral valve is thickened but opens well. There is no evidence of mitral valve prolapse. There is no mitral valve stenosis. Doppler and Color-flow revealed trace to mild mitral regurgitation. TRICUSPID VALVE The tricuspid valve is normal in structure and function. Doppler and Color Flow revealed trace tricus pid regurgitation. There is no tricuspid valve prolapse or vegetation. There is no tricuspid valve st enosis. PULMONIC VALVE Doppler and Color Flow revealed no pulmonic valvular regurgitation. There is no pulmonic valvular christie nosis. GREAT VESSELS The aortic root is normal in size. The ascending aorta is normal in size. The IVC is normal in size a nd collapses >50% with inspiration. PERICARDIAL EFFUSION There is no pleural effusion. There is no evidence of significant pericardial effusion. Critical Notification Critical Value: No <Conclusion> The systolic function is mildly impaired. The Ejection Fraction is 45-50%. There is inferior wall hypokinesis. Signed by : Kadeem Butterfield, Electronically Approved : 06/28/2021 17:39:47
== END ==
LOC: ECHO 12:40
PROVIDERS: ATTEND Internal Medicine Cardiovascular Disease
DX: I51.7 Cardiomegaly (principal); I25.10 Atherosclerotic heart disease of native coronary artery without angina pectoris
CPT/HCPCS: 93306